=== PATIENT | female | born 1995 | race Caucasian/White ===

== ENCOUNTER 2018-02-15 15:20 | Outpatient (CLI) | END 2018-02-15 17:20 | disposition home or self-care (01) ==

== ENCOUNTER 2018-02-27 11:35 | Outpatient (CLI) | END 2018-02-27 18:45 | disposition home or self-care (01) ==

== ENCOUNTER 2018-04-13 18:36 | Outpatient (CLI) | payer OTHER ==
[~2018-04-13] VITALS: Ht 167.6 cm; Wt 84.4 kg
[~2018-04-13 18:36] MED LIST: PREN1TAB71 PO
[2018-04-13 18:49] VITALS: Ht 167.6 cm; Wt 84.4 kg
[2018-04-13 18:50] VITALS: BP 123/57; PULSE 90; RESP 18
--- NOTE | 2018-04-13 20:45 | TRIAGE ---
OB Triage Datetime Report Generated by CPN: 04/13/2018 20:44 Datetime: 04/13/2018 19:48 Comments: Monitors removed, gis technician at bedside for ultrasound exam. Datetime: 04/13/2018 19:00 Labor Evaluation Frequency: X2 Monitor Mode: External Duration (sec)2399: 50-60 Quality: Mild Pattern: Normal: <= 5 Contractions in 10 Minutes Resting Tone [place]: Relaxed Heart Rate FHR Baseline Rate: 130 Monitor Mode: External US Variability: Moderate 6-25 bpm Accelerations: 15X15 Decelerations: Variable Category: Category II Datetime: 04/13/2018 18:57 Comments: changed transducer Datetime: 04/13/2018 18:55 Comments: fhts audible in the 120's but tracing at 60 Datetime: 04/13/2018 18:41 Assessment Type: Triage Maternal Assessment Level of Consciousness: Fully Conscious DTR's/Clonus: DTRs 2+; No Clonus Headache: Denies Blurred Vision: No Respiratory Effort: Unlabored; Regular Rhythm; Equal Expansion Breath Sounds, Left: Clear and Equal Breath Sounds, Right: Clear and Equal Nausea/Vomiting: Denies RUQ Epigastric Pain: Denies Lower Extremities Edema: None Degree: None Upper Extremities Edema: None Degree: None Facial Edema: None Fall Risk Assessment History of Falling: (0) No Secondary Diagnosis: (0) No Ambulatory Aid: (0) Bedrest/Nurse Assist IV Therapy: (0) No Gait: (0) Normal/Bedrest/Immobile Mental Status: (0) Oriented to Own Ability Fall Score: 0 Fall Risk Score Definition: No Risk: No action required Datetime: 04/13/2018 18:39 Comments: LOSS OF CONTACT, PT SITTING UP Datetime: 04/13/2018 18:38 Time of Arrival: 04/13/2018 18:30 EGA: 37.6 Arrived By: Ambulatory Arrived From: Home Chief Complaint: F/U NST/BPP Movement: Present Contractions: Denies/Absent Rupture of Membranes: Denies Vaginal Bleeding: None Vaginal Discharge: Denies Recent Sexual Intercouse: Denies Abdominal Trauma: Not Applicable Patient Complaints: None Initial Plan: NST/BPP Pain Assessment Pain Scale: 0 Pain Presence: None/Denies Pain Type: N/A Datetime: 04/11/2018 18:54 Maternal Assessment Level of Consciousness: Fully Conscious Labor Evaluation Frequency: Irregular Monitor Mode: External Duration (sec)2399: 60-100 Quality: Mild Pattern: Normal: <= 5 Contractions in 10 Minutes Resting Tone [place]: Relaxed Heart Rate FHR Baseline Rate: 120 Monitor Mode: External US Variability: Moderate 6-25 bpm Accelerations: 15X15 Decelerations: None Category: Category I Datetime: 04/11/2018 18:00 Labor Evaluation Frequency: Irregular Monitor Mode: External Duration (sec)2399: 60-90 Quality: Mild Pattern: Normal: <= 5 Contractions in 10 Minutes Resting Tone [place]: Relaxed Heart Rate FHR Baseline Rate: 140 Monitor Mode: External US Variability: Moderate 6-25 bpm Accelerations: 15X15 Decelerations: None Pain Presence: None/Denies Datetime: 04/11/2018 17:40 Vaginal Exam Dilatation (cms): 1.0 Effacement (%): 50 Station: -3 Exam By: Dr.Salceda Datetime: 04/11/2018 17:30 Labor Evaluation Frequency: Irregular Monitor Mode: External Duration (sec)2399: 60-90 Quality: Mild Pattern: Normal: <= 5 Contractions in 10 Minutes Resting Tone [place]: Relaxed Heart Rate FHR Baseline Rate: 130 Monitor Mode: External US Variability: Moderate 6-25 bpm Accelerations: 15X15 Decelerations: None Category: Category I Pain Presence: None/Denies Datetime: 04/11/2018 17:21 Time Provider Notified: 04/11/2018 17:18 Datetime: 04/11/2018 17:20 Vaginal Exam Dilatation (cms): 1.0 Effacement (%): 50 Station: -3 Exam By: byobe Membrane Status: Intact Cervix, Consistency: Moderate Cervix, Position: Posterior Datetime: 04/11/2018 16:57 Maternal Assessment Level of Consciousness: Fully Conscious DTR's/Clonus: DTRs 2+; No Clonus Headache: Denies Blurred Vision: No Respiratory Effort: Unlabored; Regular Rhythm; Equal Expansion Breath Sounds, Left: Clear and Equal Breath Sounds, Right: Clear and Equal Nausea/Vomiting: Denies RUQ Epigastric Pain: Denies Lower Extremities Edema: None Degree: None Upper Extremities Edema: None Degree: None Facial Edema: None Fall Risk Assessment History of Falling: (0) No Secondary Diagnosis: (0) No Ambulatory Aid: (0) Bedrest/Nurse Assist IV Therapy: (0) No Gait: (0) Normal/Bedrest/Immobile Mental Status: (0) Oriented to Own Ability Fall Score: 0 Fall Risk Score Definition: No Risk: No action required Datetime: 04/11/2018 16:55 Time of Arrival: 04/11/2018 16:56 EGA: 37.4 Arrived By: Ambulatory Arrived From: [facility] Office Chief Complaint: Vaginal pressure Movement: Present Contractions: Occasional Time Contractions Began: 04/10/2018 20:00 Contractions: 5-7 Rupture of Membranes: Denies Vaginal Bleeding: None Vaginal Discharge: Denies Recent Sexual Intercouse: Denies Abdominal Trauma: Not Applicable Patient Complaints: Contractions Time Provider Notified: 04/11/2018 17:18 Initial Plan: BPP With CELESTINA, EFW, UA, CBC Datetime: 02/27/2018 12:20 Fall Score: 0 Fall Risk Score Definition: No Risk: No action required Datetime: 02/27/2018 12:19 EGA: 31.3 Datetime: 02/15/2018 15:29 Fall Score: 0 Fall Risk Score Definition: No Risk: No action required Datetime: 02/15/2018 15:28 EGA: 29.5
--- NOTE | 2018-04-13 22:50 | PN ---
Triage Information Date/Time Reason for visit: NST and BPP Weeks of Gestation Patient is a 22-year-old 1 para 0 at 37 weeks and 6 days of gestation with estimated date of delivery April 28, 2018 Patient presents for NST and BPP and rule out labor She reports positive movement, denies uterine contractions, denies vaginal bleeding or leaking any fluid /Para 1 para 0 Diabetes: none Hypertention: none Objective Vital Signs Date Temp Pulse Resp B/P (MAP) Pulse Ox O2 O2 Flow FiO2 Time Delivery Rate 04/13/18 98.5 90 18 123/57 18:50 (79) Heart Rate: 140's Heart Rate Comments heart rate tracing category 1 Contractions: >10 Minutes Apart Exam Cervix 1 cm per nurse Results/Medications Imaging Results PROCEDURE: US OB. CLINICAL INDICATION: Vaginal pressure TECHNIQUE: Pelvic ultrasound performed for biophysical profile. COMPARISON: 04/11/2018 FINDINGS: Single intrauterine gestation present with heart rate at 139 beats per minute. Presentation is cephalic. Placenta is anterior, grade I-II. Biophysical profil e score is 8/8 (breathing=2, movement=2, tone =2, fluid volume=2). Amniotic fluid volume is within normal limits, with CELESTINA = 7.81 cm. RPTAT:HJJR IMPRESSION: Biophysical profile score 8/8. Physician Gopal Date Time Electronically viewed and signed by Physician Gopal on 04/13/2018 20:34 JR/ CC: SHANI PAGAN MD [phone] Disposition: Discharge Assessment/Plan Patient with normal-borderline low CELESTINA Patient was encouraged to increase p.o. hydration kick count instructions were given She was counseled to return on April 15 for repeat NST and BPP Patient was counseled to follow-up with her own SPINNING SUPERVISOR in 1-2 days CONOR DUGGAN MD Apr 13, 2018 22:50
== END 2018-04-13 20:42 | disposition home or self-care (01) ==
LOC: OBT 18:36 → L-D 18:36 → OBT 20:42
PROVIDERS: ATTEND Obstetrics & Gynecology
DX: O36.8330 Maternal care for abnormalities of the fetal heart rate or rhythm, third trimester, not applicable or unspecified (principal); Z3A.37 37 weeks gestation of pregnancy
CPT/HCPCS: 76818; Z7500; G0463

== ENCOUNTER 2018-04-15 18:43 | Outpatient (CLI) | payer OTHER ==
[~2018-04-15] VITALS: Ht 167.6 cm; Wt 84.4 kg
[2018-04-15 18:46] VITALS: BP 135/69; Ht 167.6 cm; Wt 84.4 kg
--- NOTE | 2018-04-15 20:58 | PN ---
Triage Information Date/Time Apr 15, 2018 Reason for visit: NST Weeks of Gestation 38w 1d /Para 1/0 Diabetes: none Hypertention: none Additional information PMHx: none PSHx: none. NKDA. Objective Vital Signs Date Temp Pulse Resp B/P (MAP) Pulse Ox O2 O2 Flow FiO2 Time Delivery Rate 04/15/18 98.2 135/69 18:46 (91) Heart Rate: 130's Heart Rate Comments Accels to 160 bpm. No decels. Contractions: >10 Minutes Apart Exam Deferred. Results/Medications Imaging Results BPP 11/14 with an CELESTINA of 8.4 cm. VTX. Disposition: Discharge Assessment/Plan A: IUP at 38w 1d. Follow-up NST for pelvic pressure. P: Keep appt with Dr Harrison 04/17. Return for repeat BPP/NST on 04/18, per Dr Harrison. Reviewed labor precautions with pt. INDIO ELDRIDGE MD Apr 15, 2018 20:58
--- NOTE | 2018-04-15 21:18 | TRIAGE ---
OB Triage Datetime Report Generated by CPN: 04/15/2018 21:18 Datetime: 04/15/2018 20:47 Stage of : OB Triage Heart Rate FHR Baseline Rate: 130 FHR Baseline Changes: No Baseline Change Variability: Moderate 6-25 bpm Accelerations: 15X15 Decelerations: None Category: Category I Datetime: 04/15/2018 20:20 Stage of : Recovery Labor Evaluation Monitor Mode: External Quality: Mild Pattern: Normal: <= 5 Contractions in 10 Minutes Resting Tone [place]: Relaxed Heart Rate FHR Baseline Rate: 140 Monitor Mode: External US FHR Baseline Changes: No Baseline Change Variability: Moderate 6-25 bpm Accelerations: 15X15 Decelerations: None Category: Category I Datetime: 04/15/2018 19:27 Stage of : OB Triage Labor Evaluation Monitor Mode: External Quality: Mild Pattern: Normal: <= 5 Contractions in 10 Minutes Resting Tone [place]: Relaxed Heart Rate FHR Baseline Rate: 125 Monitor Mode: External US FHR Baseline Changes: No Baseline Change Variability: Moderate 6-25 bpm Accelerations: 15X15 Decelerations: None Category: Category I Pain Assessment Pain Scale: 1 Pain Presence: Intermittent Pain Type: Cramping Pain Location: Abdomen Datetime: 04/15/2018 18:49 Time of Arrival: 04/15/2018 18:32 EGA: 38.1 Arrived By: Ambulatory Arrived From: Home Chief Complaint: Follow up for nst and bpp w/ orders Movement: Present Contractions: Denies/Absent Rupture of Membranes: Denies Vaginal Discharge: Denies Recent Sexual Intercouse: Denies Abdominal Trauma: Not Applicable Patient Complaints: None Time Provider Notified: 04/15/2018 20:20 Provider Notified: Dr Harrison Initial Plan: NST,BPP Maternal Assessment Level of Consciousness: Fully Conscious DTR's/Clonus: DTRs 2+; No Clonus Headache: Denies Blurred Vision: No Respiratory Effort: Unlabored; Regular Rhythm; Equal Expansion Breath Sounds, Left: Clear and Equal Breath Sounds, Right: Clear and Equal Nausea/Vomiting: Denies RUQ Epigastric Pain: Denies Lower Extremities Edema: None Degree: None Upper Extremities Edema: None Degree: None Facial Edema: None Fall Risk Assessment History of Falling: (0) No Secondary Diagnosis: (0) No Ambulatory Aid: (0) Bedrest/Nurse Assist IV Therapy: (0) No Gait: (0) Normal/Bedrest/Immobile Mental Status: (0) Oriented to Own Ability Fall Score: 0 Fall Risk Score Definition: No Risk: No action required Datetime: 04/13/2018 20:40 Stage of : OB Triage Datetime: 04/13/2018 20:20 Vaginal Exam Dilatation (cms): 1.0 Effacement (%): 70 Station: -2 Exam By: BELLE RN Cervix, Consistency: Soft Cervix, Position: Posterior Presentation 'A': Cephalic Datetime: 04/13/2018 18:41 Fall Score: 0 Fall Risk Score Definition: No Risk: No action required Datetime: 04/13/2018 18:38 EGA: 37.6 Time Provider Notified: 04/15/2018 20:20 Provider Notified: Dr Salceda Datetime: 04/11/2018 16:57 Fall Score: 0 Fall Risk Score Definition: No Risk: No action required Datetime: 04/11/2018 16:55 EGA: 37.4 Datetime: 02/27/2018 12:20 Fall Score: 0 Fall Risk Score Definition: No Risk: No action required Datetime: 02/27/2018 12:19 EGA: 31.3 Datetime: 02/15/2018 15:29 Fall Score: 0 Fall Risk Score Definition: No Risk: No action required Datetime: 02/15/2018 15:28 EGA: 29.5
== END 2018-04-15 20:59 | disposition home or self-care (01) ==
LOC: OBT 18:43 → L-D 18:44 → OBT 20:59
PROVIDERS: ATTEND Obstetrics & Gynecology
DX: O36.8330 Maternal care for abnormalities of the fetal heart rate or rhythm, third trimester, not applicable or unspecified (principal); Z3A.38 38 weeks gestation of pregnancy
CPT/HCPCS: 76818; Z7500; G0463

== ENCOUNTER 2018-04-18 19:28 | Outpatient (CLI) | payer OTHER ==
[~2018-04-18] VITALS: Ht 166.4 cm; Wt 68.0 kg
[2018-04-18 19:53] VITALS: BP 116/72; PULSE 84; RESP 18
--- NOTE | 2018-04-19 01:02 | PN ---
Triage Information Date/Time 04/19/1802/25/57 Reason for visit: Uterine contractions Weeks of Gestation 38w4d /Para primigravida Diabetes: none Hypertention: none Additional information antepartum test f/u VE at office 3cm/70/-3 Objective Vital Signs Date Temp Pulse Resp B/P (MAP) Pulse Ox O2 O2 Flow FiO2 Time Delivery Rate 04/18/18 99.1 84 18 116/72 Room Air 19:53 (87) Heart Rate: 140's Contractions: >10 Minutes Apart Exam same VE no change Results/Medications Results 24 hrs Laboratory Tests Test 04/18/18 19:35 Urine Color YELLOW Urine Clarity CLEAR Urine pH 6.0 Urine Specific [place] 1.027 Urine Ketones TRACE A Urine Nitrite NEGATIVE Urine Bilirubin NEGATIVE Urine Urobilinogen NEGATIVE Urine Leukocyte Esterase NEGATIVE Urine Hemoglobin NEGATIVE Urine Glucose NEGATIVE Urine Total Protein NEGATIVE Imaging Results BPP 8 CELESTINA 13 Disposition: Discharge Assessment/Plan A IUP 38w4d latent phase P discharge home with routine labor instructions EVY STUBBS MD Apr 19, 2018 01:02
--- NOTE | 2018-04-19 04:36 | TRIAGE ---
OB Triage Datetime Report Generated by CPN: 04/19/2018 04:36 Datetime: 04/18/2018 21:45 Time of Arrival: 04/18/2018 19:20 EGA: 38.4 Arrived By: Ambulatory Arrived From: Home Chief Complaint: for follow up NST/BPP after variable c/o irreg ucs and states ws 2cm at clinic yesterday Movement: Present Contractions: Irregular Time Contractions Began: 04/18/2018 01:00 Contractions: q5-20 Rupture of Membranes: Denies Vaginal Bleeding: None Vaginal Discharge: Denies Recent Sexual Intercouse: Denies Abdominal Trauma: Not Applicable Time Provider Notified: 04/18/2018 21:40 Provider Notified: Dr Harrison Initial Plan: EFM/BPP, SVE Datetime: 04/15/2018 18:49 EGA: 38.1 Fall Risk Assessment Fall Score: 0 Fall Risk Score Definition: No Risk: No action required Datetime: 04/13/2018 18:41 Fall Risk Assessment Fall Score: 0 Fall Risk Score Definition: No Risk: No action required Datetime: 04/13/2018 18:38 EGA: 37.6 Datetime: 04/11/2018 16:57 Fall Risk Assessment Fall Score: 0 Fall Risk Score Definition: No Risk: No action required Datetime: 04/11/2018 16:55 EGA: 37.4 Datetime: 02/27/2018 12:20 Fall Risk Assessment Fall Score: 0 Fall Risk Score Definition: No Risk: No action required Datetime: 02/27/2018 12:19 EGA: 31.3 Datetime: 02/15/2018 15:29 Fall Risk Assessment Fall Score: 0 Fall Risk Score Definition: No Risk: No action required Datetime: 02/15/2018 15:28 EGA: 29.5
== END 2018-04-18 22:40 | disposition home or self-care (01) ==
LOC: OBT 19:28 → L-D 19:29 → OBT 22:40
PROVIDERS: ATTEND Obstetrics & Gynecology
DX: O62.9 Abnormality of forces of labor, unspecified (principal); Z3A.38 38 weeks gestation of pregnancy
CPT/HCPCS: 76815; 76818; 81003; 87086; Z7500; G0463

== ENCOUNTER 2018-04-23 20:40 | Inpatient (IN) | payer OTHER ==
[2018-04-23] MEDS ORDERED: LIDOCAINE 1% (MPF) 30 ML INJ INJ PRN (21:00)
[2018-04-23] MEDS ORDERED: AMPICILLIN 2 GM/NS (PMX) 100 ML IV ONE (21:00)
[2018-04-23] MEDS ORDERED: MISOPROSTOL 200 MCG TAB PR PRN (21:00)
[2018-04-23] MEDS ORDERED: OXYTOCIN 30 UNITS/LR 500 ML IV SCH ×2 (21:00)
[2018-04-23] MEDS ORDERED: BUTORPHANOL 2 MG INJ IV PRN (21:00)
[2018-04-23] MEDS ORDERED: IBUPROFEN 600 MG TAB PO PRN (21:00)
[2018-04-23] MEDS ORDERED: CARBOPROST 250 MCG INJ IM PRN (21:00)
[2018-04-23] MEDS ORDERED: METHYLERGONOVINE 0.2 MG INJ IM PRN (21:00)
[2018-04-23] MEDS ORDERED: OXYTOCIN 30 UNITS/LR 500 ML IV PRN (21:00)
--- NOTE | 2018-04-23 21:30 | TRIAGE ---
OB Triage Datetime Report Generated by CPN: 04/23/2018 21:29 Datetime: 04/23/2018 21:45 Time of Arrival: 04/23/2018 20:33 Chief Complaint: UC's since 183. Contractions: Regular Contractions: Every 3 min Rupture of Membranes: Denies Vaginal Bleeding: None Vaginal Discharge: Denies Recent Sexual Intercouse: Denies Abdominal Trauma: Not Applicable Patient Complaints: Contractions Time Provider Notified: 04/23/2018 20:55 Provider Notified: Dr. Harrison Initial Plan: CEFM, VE Datetime: 04/23/2018 20:49 Vaginal Exam Dilatation (cms): 4.0 Effacement (%): 90 Station: -2 Exam By: Velma Regalado RN Membrane Status: Intact Vaginal Bleeding: None Cervix, Consistency: Soft Cervix, Position: Midposition Presentation 'A': Cephalic Datetime: 04/23/2018 20:47 Stage of : OB Triage Assessment Type: Triage Maternal Assessment Level of Consciousness: Fully Conscious DTR's/Clonus: DTRs 2+; No Clonus Headache: Denies Blurred Vision: No Respiratory Effort: Unlabored; Regular Rhythm; Equal Expansion Breath Sounds, Left: Clear and Equal Breath Sounds, Right: Clear and Equal Nausea/Vomiting: Denies RUQ Epigastric Pain: Denies Lower Extremities Edema: None Degree: None Upper Extremities Edema: None Degree: None Facial Edema: None Temperature Route: Oral Fall Risk Assessment History of Falling: (0) No Secondary Diagnosis: (0) No Ambulatory Aid: (0) Bedrest/Nurse Assist IV Therapy: (0) No Gait: (0) Normal/Bedrest/Immobile Mental Status: (0) Oriented to Own Ability Pain Assessment Pain Scale: 10 Datetime: 04/18/2018 21:45 EGA: 38.4 Datetime: 04/18/2018 21:40 Stage of : OB Triage Datetime: 04/18/2018 21:22 Labor Evaluation Monitor Mode: External Quality: Mild Pattern: Normal: <= 5 Contractions in 10 Minutes Resting Tone [place]: Relaxed Heart Rate FHR Baseline Rate: 130 Monitor Mode: External US FHR Baseline Changes: No Baseline Change Variability: Moderate 6-25 bpm Accelerations: 15X15 Decelerations: None Category: Category I Datetime: 04/18/2018 20:18 Stage of : OB Triage Labor Evaluation Monitor Mode: External Quality: Mild Pattern: Normal: <= 5 Contractions in 10 Minutes Resting Tone [place]: Relaxed Heart Rate FHR Baseline Rate: 130 Monitor Mode: External US FHR Baseline Changes: No Baseline Change Variability: Moderate 6-25 bpm Accelerations: 15X15 Decelerations: None Category: Category I Datetime: 04/18/2018 19:41 Stage of : OB Triage Maternal Assessment Level of Consciousness: Fully Conscious Headache: Denies Blurred Vision: No Nausea/Vomiting: Denies RUQ Epigastric Pain: Denies Facial Edema: None Labor Evaluation Monitor Mode: External Resting Tone [place]: Relaxed Heart Rate FHR Baseline Rate: 130 Monitor Mode: External US Pain Assessment Pain Scale: 6 Pain Presence: Intermittent Pain Type: Contraction Pain Location: Abdomen Datetime: 04/15/2018 18:49 EGA: 38.1 Fall Score: 0 Fall Risk Score Definition: No Risk: No action required Datetime: 04/13/2018 18:41 Fall Score: 0 Fall Risk Score Definition: No Risk: No action required Datetime: 04/13/2018 18:38 EGA: 37.6 Datetime: 04/11/2018 16:57 Fall Score: 0 Fall Risk Score Definition: No Risk: No action required Datetime: 04/11/2018 16:55 EGA: 37.4 Datetime: 02/27/2018 12:20 Fall Score: 0 Fall Risk Score Definition: No Risk: No action required Datetime: 02/27/2018 12:19 EGA: 31.3 Datetime: 02/15/2018 15:29 Fall Score: 0 Fall Risk Score Definition: No Risk: No action required Datetime: 02/15/2018 15:28 EGA: 29.5
[2018-04-23] MEDS: LACTATED RINGER'S 1,000 ML IV SCH ×2 (21:47→22:49)
--- NOTE | 2018-04-23 21:55 | PREAC ---
Date/Time of Note Date/Time of Note DATE: 04/23/18 TIME: 21:55 Anesthesia Eval and Record Evaluation Time Pre-Procedure Interview DATE: 04/23/18 TIME: 21:55 Age 22 Sex female NPO: 8 hrs Preoperative diagnosis labor pain Planned procedure epidural Past Medical History Past Medical History: None Surgery & Anesthesia Issues No known issue Meds Anticoagulation: No Beta Efra within 24 hr: No Reason Beta Efra not given: Pt. not on B-Efra Reported Medications Vit No.130/Iron/FA ( Tablet) 1 Each Tablet, 1 EACH PO 02/15/18 Current Medications Lactated Ringer's 1,000 ml @ 125 mls/hr Q8H IV Last administered on 04/23/18at 21:47; Admin Dose 125 MLS/HR; Start 04/23/18 at 20:58 Ampicillin 100 ml @ 100 mls/hr ONCE ONCE IV Last administered on 04/23/18at 21:47; Admin Dose 100 MLS/HR; Start 04/23/18 at 21:00; Stop 04/23/18 at 21:59 Ampicillin 50 ml @ 100 mls/hr Q4H IV ; Start 04/24/18 at 01:00 Butorphanol Tartrate (Stadol) 2 mg Q2H PRN IV PAIN; Start 04/23/18 at 21:00 Lidocaine (Xylocaine 1% (Mpf)) 30 ml ONCE PRN INJ EPISIOTOMY; Start 04/23/18 at 21:00 Oxytocin/Lactated Ringer's 500 ml @ 500 mls/hr ONCE POST IV ; Start 04/23/18 at 21:00 Oxytocin/Lactated Ringer's 500 ml @ 125 mls/hr POST IV ; Start 04/23/18 at 21:00 Ibuprofen (Motrin) 600 mg ONCE PRN PO PAIN LEVEL 1-5; Start 04/23/18 at 21:00 Oxytocin/Lactated Ringer's 500 ml @ 0 mls/hr ONCE PRN IV VAGINAL BLEEDING; Start 04/23/18 at 21:00 Methylergonovine Maleate (Methergine) 0.2 mg ONCE PRN IM VAGINAL BLEEDING; Start 04/23/18 at 21:00 Carboprost Tromethamine (Hemabate) 250 mcg ONCE PRN IM VAGINAL BLEEDING; Start 04/23/18 at 21:00 Misoprostol (Cytotec) 1,000 mcg ONCE PRN VT VAGINAL BLEEDING; Start 04/23/18 at 21:00 Meds reviewed: Yes Allergies Coded Allergies: No Known Drug Allergies (Verified Allergy, Unknown, 04/23/18) Allergies Reviewed: Yes Labs/Studies Labs Reviewed: Reviewed by anesthesiologist Result Diagram: 04/23/18 2127 Laboratory Tests 04/23/18 21:27 test: N/A Pre-procedure Exam Airway: Adequate mouth opening, Adequate thyromental dist Mallampati: Mallampati III Teeth: Normal Lung: Normal Heart: Normal ASA Physical Status ASA physical status: 2 Emergency: None Pre-operative Attestations Prior to commencing anesthesia and surgery, the patient was re-evaluated, there was verification of: *The patient's identity *The results of appropriate recent lab work and preoperative vital signs *The above evaluation not changing prior to induction *Anesthetic plan, risk benefits, alternative and complications discussed with patient/family; questions answered; patient/family understands, accepts and wishes to proceed. VINEET OKEEFE DO Apr 23, 2018 21:55
[2018-04-23] MEDS ORDERED: FENTAnyl 2MCG/ML-ROPIV 0.2% 100 ML BAG EPI SCH (22:00)
[2018-04-23] MEDS ORDERED: NALOXONE (0.4 MG/ML) INJ IV PRN (22:00)
--- NOTE | 2018-04-23 22:24 | PAC ---
Date/Time of Note Date/Time of Note DATE: 04/23/18 TIME: 22:23 Post-Anesthesia Notes Post-Anesthesia Note Last documented vital signs 111/60 102 98 100% 2224 Activity: WNL Respiratory function: WNL Cardiovascular function: WNL Mental status: Baseline Pain reasonably controlled: Yes Hydration appropriate: Yes Nausea/Vomiting absent: Yes VINEET OKEEFE DO Apr 23, 2018 22:24
[2018-04-24] MEDS ORDERED: AMPICILLIN 1 GM/NS (PMX) 50 ML IV SCH (01:00)
[2018-04-24] MEDS ORDERED: DEXTROSE 5%-LR 1,000 ML IV SCH (02:57)
[2018-04-24] MEDS ORDERED: ZOLPIDEM 5 MG TAB PO PRN (03:00)
[2018-04-24] MEDS ORDERED: OXYTOCIN 30 UNITS/LR 500 ML IV PRN (03:00)
[2018-04-24] MEDS ORDERED: OXYCODONE/ASPIRIN (4.88/325) TAB PO PRN (03:00)
[2018-04-24] MEDS ORDERED: MISOPROSTOL 200 MCG TAB PR PRN (03:00)
[2018-04-24] MEDS ORDERED: DIPHENHYDRAMINE 50 MG INJ IV PRN (03:00)
[2018-04-24] MEDS ORDERED: BENZOCAINE 20% 56 ML SPRAY TOP PRN (03:00)
[2018-04-24] MEDS ORDERED: ACETAMINOPHEN 325 MG TAB PO PRN (03:00)
[2018-04-24] MEDS ORDERED: ONDANSETRON 4 MG INJ IV PRN (03:00)
[2018-04-24] MEDS ORDERED: METHYLERGONOVINE 0.2 MG INJ IM PRN (03:00)
[2018-04-24] MEDS ORDERED: SENNA/DOCUSATE NA (8.6MG/50MG) TAB PO PRN (03:00)
[2018-04-24] MEDS ORDERED: CARBOPROST 250 MCG INJ IM PRN (03:00)
[2018-04-24] MEDS ORDERED: LANOLIN HPA 1 PKT TOP PRN (03:00)
[2018-04-24] MEDS ORDERED: WITCH HAZEL/GLYCERIN PAD PR PRN (03:00)
[2018-04-24] MEDS ORDERED: DIBUCAINE 1% 30 GM OINT TOP PRN (03:00)
--- NOTE | 2018-04-24 03:10 | HP ---
Date/Time of Note Date/Time of Note DATE: 04/24/18 TIME: 02:59 OB - History Hx of Present Free Text/Dictation 22-year-old 1 with single intrauterine at 39 weeks and 3 days with a JANETT of 04/28/2018 complaining of uterine contractions. She states good movement. She denies nausea, vomiting, shortness of breath, chest pain, headache, visual changes, vaginal bleeding or LOF. Chief Complaint: Uterine contractions Estimated Due Date: Apr 28, 2018 : 1 Care: Good Care Ultrasounds: Normal mid trimester US Obstetrical Complications: None Medical Complications: None Past Family/Social History * Past Medical, Surgical, Family and Obstetric Histories reviewed from chart. Blood Type: O+ Rubella: immune RPR/VDRL: Negative GBS Status: Positive HBsAG: Negative OB Admission Exam Vital Signs Vital Signs Blood pressure 122/67, pulse rate 78/minutes, respiratory rate 16/minutes temperature 98.3 Physical Exam HEENT: WNL Heart: Rhythm Normal Lungs: Clear Abdomen: WNL Extremities: Normal Cervical Dilatation: 5cm Effacement: 75% Station: -2 Membranes: Intact Heart Rate: 140's Accelerations: Accelerations Present Decelerations: No Decelerations Varibility: Moderate Contractions on Admission: < 5 Minutes Apart Intensity: Moderate Last 72 hours Lab Results CBC & BMP 04/23/18 21:27 OB Assessment/Plan Other plan: 22-year-old 1 at 39 weeks and 3 days in active labor - FHR: No sign of metabolic acidosis- Category I - Continuous EFM, toco - CBC, blood type and screen - Analgesia options with R/B/A discussed in detail with patient - Epidural per patient request - Please see the orders - O+/Rubella: Immune - GBS: Positive, ampicillin ordered Admission, procedures, expectations, risks and possible complications have been discussed in detail with the patient. Risk of vaginal delivery including but not limited to bleeding, infection, cervical laceration, placental retention, injury to fetus, blood transfusion, blood transfusion related infection, risk of anesthesia, adhesion, cervical laceration, episiotomy/laceration, possible delivery with risk of bleeding, infection, injury to other organs (bowel, bladder, ureter, vessels, nerves), injury to fetus, blood transfusion, blood transfusion related infection, risk of anesthesia, scar and hernia formation, needs for future , removal of uterus or any other indicated surgery discussed with the patient. She expressed understanding and repeats the risks. All of her questions were answered. She signed the informed consent. PHYSICIAN'S VERIFICATION OF INFORMED CONSENT The patient was counseled regarding the procedure, its indications, risks, potential complications and alternatives and any questions were answered. Consent was obtained. PLANNED PROCEDURE/TREATMENT: Vaginal delivery, episiotomy, repair of laceration possible delivery KENNY HOOD Apr 24, 2018 03:09
[2018-04-24 03:50] VITALS: BP 126/66; PULSE 110
--- NOTE | 2018-04-24 04:12 | LDN ---
Date/Time of Note Date/Time of Note DATE: 04/24/18 TIME: 04:09 Delivery Summary 22-year-old 1 with single intrauterine at 39 weeks and 3 days delivered a viable male in cephalic presentation over second-degree vaginal laceration. Nose and mouth suctioned. Rest of body delivered. Cord clamped and cut. Baby given to the nurse. Placenta delivered spontaneously and intact with three-vessel cord. Laceration repaired with 2-0 Vicryl. Patient tolerated procedure well. Time of delivery 01:42 Weight 6 pounds 15 ounces Height 18.5 inches 8 at 1 minutes and 9 at 5 minutes EBL 200 Weeks of Gestation 39 weeks and 3 days Placenta Delivered: Spontaneously Meconium: none Episiotomy: No Anesthesia type: Epidural Estimated blood loss: 200 Sponge & Needle done & correct: Yes All needle counts correct: Yes Any foreign bodies felt in the: No Delivery Information Sex Sex: male Apgars 1 Minute: 8 5 Minute: 9 10 Minute: 10 Suctioning Nose & mouth suctioned at lucio: Yes Umbilical Cord Umbilical cord with: 3 Vessels Cord presentations: no nuchal cord Cord Blood was obtained: Yes Mother & Baby Disposition Disposition Mom & Baby to Maternity; Good: Yes KENNY HOOD Apr 24, 2018 04:12
[2018-04-24] MEDS: IBUPROFEN 600 MG TAB PO SCH ×4 (05:35→23:44)
[2018-04-24] MEDS: LACTATED RINGER'S 1,000 ML IV* SCH ×3 (06:14→18:57)
[2018-04-24 08:05] VITALS: BP 102/55; PULSE 91; RESP 18
[2018-04-24] MEDS ORDERED: BISACODYL 10 MG SUPP PR PRN (13:30)
[2018-04-24] MEDS ORDERED: MAGNESIUM HYDROXIDE 30ML CUP PO PRN (13:30)
[2018-04-24 15:51] VITALS: BP 111/62; PULSE 87; RESP 18
[2018-04-24 19:20] VITALS: BP 111/55; PULSE 96; RESP 18
[2018-04-24 23:45] VITALS: BP 105/59; PULSE 59; RESP 18
[2018-04-25] MEDS: LACTATED RINGER'S 1,000 ML IV* SCH ×2 (02:57→10:13)
[2018-04-25 03:55] VITALS: BP 105/69; PULSE 60; RESP 18
[2018-04-25] MEDS: IBUPROFEN 600 MG TAB PO SCH ×2 (06:00→11:53)
[2018-04-25 08:00] VITALS: BP 111/69; PULSE 89; RESP 18
[2018-04-26] MEDS ORDERED: DIPHTH/TET/ACEL PERTUSS (ADULT) 0.5 ML VIAL IM* ONE (09:00)
[2018-04-26] MEDS ORDERED: MEASLES,MUMPS,RUBELLA VACCINE INJ SC* ONE (09:00)
--- NOTE | 2018-05-13 08:53 | DS ---
DATE OF ADMISSION: 04/23/2018 DATE OF DISCHARGE: 04/25/2018 SUBJECTIVE: This is a 23-ywk[age] lady, 3, at 39 weeks and 3/7 days. EDC 04/28/2018. Admi tted in labor. HISTORY OF PRESENT ILLNESS: See dictated history and physical. PHYSICAL EXAMINATION: See dictated history and physical. ADMITTING DIAGNOSIS: 39 and 3/7 weeks in active labor. PROGRESS OF LABOR: See dictated history and physical. HOSPITAL COURSE: The patient progressed well, had a normal spontaneous vaginal delivery and delivere d by Dr. Zhou. She delivered a healthy baby on 1:42 a.m. 04/24/2018 weighing 6 pounds 15 ounces, 18.5 inches long, 8 and 9 and she received labor epidural. She tolerated the delivery well. She did have good course and she had good bowel movement. She was discharged home on 04/09. In general diet and activity was restricted. She was counseled. She was instructed. She w as told to come back to the clinic in 2 weeks. The hematocrit on discharge was 36.5 and hemoglobin 1 1.7. FINAL DIAGNOSIS: 39 and 4/7 weeks intrauterine in labor and delivered. Dictated By: SHANI PAGAN MD NS/NTS Conf#: [id number] DID#: [id number] CC: SHANI PAGAN MD;*EndCC*
== END 2018-04-25 15:40 | disposition home or self-care (01) | DRG 807 ==
LOC: OBT 20:40 → L-D 20:41 → OBT 20:55 → PP1 04-24 03:32 → L-D 04-24 03:44 → PP1 04-24 03:50
PROVIDERS: ADMIT Obstetrics & Gynecology; ATTEND Obstetrics & Gynecology
PROC: 10E0XZZ Delivery of Products of Conception, External Approach (ICD-10-PCS; principal; 2018-04-23)
PROC: 0KQM0ZZ Repair Perineum Muscle, Open Approach (ICD-10-PCS; 2018-04-23)
PROC: 3E033VJ Introduction of Other Hormone into Peripheral Vein, Percutaneous Approach (ICD-10-PCS; 2018-04-23)
DX: O71.4 Obstetric high vaginal laceration alone (principal); Z37.0 Single live birth; Z3A.39 39 weeks gestation of pregnancy
CPT/HCPCS: 62319; 85025; 85610; 85730; 86592; 86850; 86900; 86901; G0463; J0290; J2590; J3010; J7120; J7121